=== PATIENT | male | born 1945 | race Caucasian/White ===

== ENCOUNTER → 2016-12-07 | Outpatient (CLI) | payer MEDICARE ==
[2016-12-07 14:15] LABS: Blood Urea Nitrogen 24 mg/dL (9-20); Non-African American GFR(MDRD) >60 (>60 ml/min/1.73 sqM)
--- NOTE | 2016-12-07 16:03 | CT ---
EXAMINATION TYPE: CT urogram wo/w con DATE OF EXAM: 12/07/2016 COMPARISON: NONE HISTORY: Gross hematuria for one month CT DLP: 3693 mGycm, Automated Exposure Control for Dose Reduction was Utilized. CONTRAST: CT scan of the abdomen and pelvis is performed without oral and without and with IV Contrast, patient injected with 100 ml mL of Omnipaque 300. Urogram protocol with Three-D reconstructed images created on independent workstation and reviewed. FINDINGS: KUB: Noncontrast images show no right-sided renal calculi. There are suspected 3-4 small adjacent kianna culi left kidney lower pole level measuring up to 7 mm on long axis on axial image 52. There are susp ected to calculi centrally in the pelvis measuring up to 9 mm on long axis on coronal image 109. Post contrast images show symmetric cortical medullary uptake and excretion from both kidneys without evid ence of hydronephrosis bilaterally. There is simple appearing 2.4 x 1.8 cm cyst centrally right kidne y on axial image 49. No worrisome additional solid or cystic renal lesions are seen. Visualized porti on of both ureters show no suspicious calculi or hydroureter. Bladder is poorly distended and thus rodriguez boptimally evaluated even on 10 minute delay images. No obvious intraluminal mass is present. Mild wa ll thickening is felt likely product of slightly enlarged prostate gland. LUNG BASES: Some dependent and linear scarring and/or atelectasis is present bilaterally. LIVER/GB: There is 2.6 cm simple appearing cyst centrally in liver on axial image 24. Cholecystectomy clips are noted. PANCREAS: No significant abnormality is seen. SPLEEN: No significant abnormality is seen. ADRENALS: Surgical clips near left adrenal gland are suspected. BOWEL: Appendix is within normal limits from cecum in the right lower quadrant. There are some divert icula in the sigmoid and left colon. There is no CT evidence for acute diverticulitis. PROSTATE/SEMINAL VESICLES: Central zone calcifications are seen in prostate gland which is mildly enl arged bulging on bladder base, clinical correlation for BPH is advised. LYMPH NODES: No greater than 1cm abdominal or pelvic lymph nodes are appreciated. OSSEOUS STRUCTURES: There is postsurgical change in the lower lumbar spine with bilateral laminectomy defects and spinous process resection. There is posterior fusion hardware from L3 through S1 levels. There is spinal stimulator device in the posterior spinal canal at the mid to lower thoracic spine. OTHER: There is mild calcified atherosclerotic change of aorta extending into branch vessels. IMPRESSION: Left-sided lower pole calyceal and collecting system calculi as detailed above. No delaye d excretion or hydronephrosis is present.
== END | disposition home or self-care (01) ==
LOC: RADCTMAIN 13:31
PROVIDERS: ATTEND Urology
DX: N20.0 Calculus of kidney (principal)
CPT/HCPCS: 82565; 84520; 74178; 36415; 74400; Q9967

== ENCOUNTER → 2016-12-24 | Outpatient (CLI) | payer MEDICARE ==
[2016-12-24 12:04] LABS: Appearance,Urine Cloudy (Clear); Bilirubin,Urine Negative (Negative); Glucose,Urine (UA) Negative (Negative); Ketones,Urine Trace (Negative); Leukocyte Esterase,Urine Trace (Negative); Mucus,Urine Rare /hpf; Nitrite,Urine Negative (Negative); PH, Urine 5.5 (5.0-8.0); Particle Count 2929; Protein,Urine 1+ (Negative); RBC,Urine >182 /hpf (0-5); Specific Gravity,Urine 1.023 (1.001-1.035); UA Billing (MACRO vs. MICRO) MICRO; Urobilinogen,Urine <2.0 mg/dL (<2.0); WBC,Urine 2 /hpf (0-5)
[2016-12-24 12:13] LABS: Anisocytosis Slight; Basophils % (A) 0 %; CH 25.4; CHCM 30.1; Eosinophils # (A) 0.2 k/uL (0-0.7); Eosinophils % (A) 3 %; HCT 48.2 % (39.0-53.0); HDW 2.89; HGB 14.2 gm/dL (13.0-17.5); Hypochromasia Marked; Luc # (Auto) 0.17; Luc % (Auto) 3; Lymphocytes # (A) 1.3 k/uL (1.0-4.8); Lymphocytes % (A) 23 %; MCH 24.9 pg (25.0-35.0); MCHC 29.4 g/dL (31.0-37.0); MCV 84.8 fL (80.0-100.0); Mean Platelet Volume 8.2; Monocytes # (A) 0.6 k/uL (0-1.0); Monocytes % (A) 11 %; Neutrophils # (A) 3.4 k/uL (1.3-7.7); Neutrophils % (A) 61 %; RBC 5.69 m/uL (4.30-5.90); RDW 18.6 % (11.5-15.5); WBC 5.6 k/uL (3.8-10.6); WBC (Perox) 5.37
[2016-12-24 12:53] LABS: Anion Gap 9 mmol/L; Blood Urea Nitrogen 20 mg/dL (9-20); Carbon Dioxide 22 mmol/L (22-30); Chloride 110 mmol/L (98-107); Non-African American GFR(MDRD) >60 (>60 ml/min/1.73 sqM); Potassium 4.5 mmol/L (3.5-5.1); Sodium 141 mmol/L (137-145)
== END | disposition home or self-care (01) ==
LOC: LABWHC1 11:21
PROVIDERS: ATTEND Urology
DX: N20.0 Calculus of kidney (principal)
CPT/HCPCS: 36415; 80051; 81001; 82565; 84520; 85025

== ENCOUNTER → 2016-12-27 | Day surgery (SDC) | payer MEDICARE ==
[2016-12-24 10:37] VITALS: BMI 33.3
[~2016-12-27] MED LIST: DEXAMETHASONE SOD PHOSPHATE 10 MG/ML 1 ML VIAL IV ONE; KETAMINE 10 MG/ML 20 ML VIAL ONE; LACTATED RINGERS 1,000 ML IV SCH; LIDOCAINE 1% 20 ML VIAL (10MG/ML) FOR IV START INTRADERMA PRN; MIDAZOLAM 2 MG/2 ML VIAL ONE; PROPOFOL 10 MG/ML 20 ML VIAL IV ONE; Pre Op ABX Message 1 EACH MISC MISCELLANE ONE; fentaNYL (PF) 50 MCG/ML 2 ML AMP ONE
--- NOTE | 2016-12-27 10:22 | XR ---
EXAMINATION TYPE: XR KUB DATE OF EXAM: 12/27/2016 10:10 AM CLINICAL HISTORY: Left-sided dominant pain and left-sided nephrolithiasis. TECHNIQUE: Single supine KUB image of the abdomen is obtained. COMPARISON: CT urogram dated 12/07/2016. FINDINGS: The previously seen approximately 9 mm radiopaque calculus on the prior CT this measured tr ansversely on today's examination but appears similar measuring 1.1 cm. Additionally within the lower pole of the left kidney there is redemonstration of an approximately 9 mm calculus. Surgical clips a re appreciated in the left periaortic region and gallbladder fossa. Nerve stimulator and postoperativ e changes of the lumbar spine with spinous process resection and laminectomy defects are again apprec iated. Moderate degenerative change of the bilateral femoral acetabular joints are again seen. Scattered gas is seen in non-distended small bowel loops. Gas and fecal material is seen in non-diste nded colon. IMPRESSION: Left-sided renal calculi appearing similar location to the prior CT of 12/07/2016 radiogra phically. The larger calculus is again thought to reside within the proximal collecting system/renal pelvis.
[2016-12-27 11:46] VITALS: TEMP 97.9
[2016-12-27 12:35] LABS: INR 1.5 (<1.2); Prothrombin Time 14.4 sec (9.0-12.0)
--- NOTE | 2016-12-27 13:10 | P.OP ---
Date of Procedure: 12/27/16 Preoperative Diagnosis: Left Renal Calculi Postoperative Diagnosis: Same Procedure(s) Performed: Left Extracorporal Shockwave Lithotripsy (ESWL) Anesthesia: MAC Surgeon: Catarino Daniels Estimated Blood Loss (ml): 0 IV fluids (ml): 400 Pathology: none sent Condition: stable Disposition: PACU Indications for Procedure: The patient is a 71-year-old male with recent gross hematuria. A computed tomography scan shows calculi within the left renal pelvis and left lower pole. The preoperative KUB x-ray shows them to measure 11 and 9 mm, respectively. He has elected to undergo ESWL and comes for this reason. Operative Findings: The left renal pelvic calculus fragmented. Description of Procedure: The patient was taken to the operating room and placed on the Dornier Compact Delta II lithotripter in the supine position. The calculi were seen on biplanar fluoroscopy. Once the patient was properly positioned and sedated, lithotripsy was performed. The renal pelvic calculus was treated. The energy level was gradually increased per protocol, to an energy level of 5. After 200 shocks were administered, a 2 minute pause was instituted per protocol. A total of 2500 shocks were given at a rate of 80 shocks per minute. Fluoroscopy was utilized at a minimum to ensure proper positioning and determine the treatment status. The calculus changed in appearance, consistent with fragmentation. The patient tolerated the procedure well was taken to the recovery room in stable condition. Instructions were given to strain the urine , and the patient will follow-up with Dr. Carrion in one week.
[2016-12-27 14:01] VITALS: RESP 20
[2016-12-27 14:43] VITALS: BP 138/83; PULSE 68
== END | disposition home or self-care (01) ==
LOC: ORWHC2ENDO 09:52
PROVIDERS: ATTEND Urology
DX: N20.0 Calculus of kidney (principal); I10 Essential (primary) hypertension; E78.5 Hyperlipidemia, unspecified; I48.91 Unspecified atrial fibrillation; Z79.01 Long term (current) use of anticoagulants; E03.9 Hypothyroidism, unspecified; G47.33 Obstructive sleep apnea (adult) (pediatric); G70.00 Myasthenia gravis without (acute) exacerbation; N52.9 Male erectile dysfunction, unspecified; Z87.442 Personal history of urinary calculi; M19.90 Unspecified osteoarthritis, unspecified site; Z79.890 Hormone replacement therapy; Z79.899 Other long term (current) drug therapy; Z87.891 Personal history of nicotine dependence
CPT/HCPCS: 85610; 74000; 50590; J2250; J1100; J3010; J2704

== ENCOUNTER → 2017-01-03 | Outpatient (CLI) | payer MEDICARE ==
[2017-01-03 09:40] LABS: Anisocytosis Slight; Basophils % (A) 1 %; CH 24.9; Eosinophils # (A) 0.2 k/uL (0-0.7); Eosinophils % (A) 3 %; HCT 48.3 % (39.0-53.0); HDW 2.77; HGB 14.1 gm/dL (13.0-17.5); Hypochromasia Marked; Luc # (Auto) 0.16; Luc % (Auto) 3; Lymphocytes # (A) 0.9 k/uL (1.0-4.8); Lymphocytes % (A) 18 %; MCH 25.1 pg (25.0-35.0); MCHC 29.2 g/dL (31.0-37.0); MCV 86.1 fL (80.0-100.0); Mean Platelet Volume 7.2; Monocytes # (A) 0.5 k/uL (0-1.0); Monocytes % (A) 10 %; Neutrophils # (A) 3.4 k/uL (1.3-7.7); Neutrophils % (A) 65 %; RBC 5.61 m/uL (4.30-5.90); WBC 5.2 k/uL (3.8-10.6); WBC (Perox) 4.96
[2017-01-03 09:42] LABS: ALT 34 U/L (21-72); AST 24 U/L (17-59); Alkaline Phosphatase 69 U/L (38-126); Anion Gap 8 mmol/L; Blood Urea Nitrogen 18 mg/dL (9-20); Calcium 9.3 mg/dL (8.4-10.2); Carbon Dioxide 24 mmol/L (22-30); Chloride 109 mmol/L (98-107); Cholesterol 146 mg/dL (<200); Glucose 97 mg/dL (74-99); HDL Cholesterol 42 mg/dL (40-60); Non-African American GFR(MDRD) >60 (>60 ml/min/1.73 sqM); Potassium 4.2 mmol/L (3.5-5.1); Sodium 141 mmol/L (137-145); Total Bilirubin 0.6 mg/dL (0.2-1.3); Total Protein 6.7 g/dL (6.3-8.2)
== END | disposition home or self-care (01) ==
LOC: LABWHC1 08:52
PROVIDERS: ATTEND Internal Medicine Interventional Cardiology
DX: E78.2 Mixed hyperlipidemia (principal); E06.3 Autoimmune thyroiditis; D64.9 Anemia, unspecified; E55.9 Vitamin D deficiency, unspecified; R61 Generalized hyperhidrosis; R73.09 Other abnormal glucose
CPT/HCPCS: 36415; 80053; 80061; 82306; 84402; 84403; 84439; 84443; 85025

== ENCOUNTER → 2018-10-10 | Outpatient (CLI) | payer MEDICARE ==
--- NOTE | 2018-10-10 10:32 | CT ---
EXAMINATION TYPE: CT brain wo con DATE OF EXAM: 10/10/2018 COMPARISON: None HISTORY: Abnormal gait CT DLP: 1087.2 mGycm Automated exposure control for dose reduction was used. Helical imaging through the brain FINDINGS: There is cortical atrophy. Periventricular white matter shows patchy low attenuation. No hemorrhage o r hydrocephalus. Cerebral vascular calcifications are present. The calvarium is intact. Paranasal sin uses and mastoid air cells are well aerated. Orbits are symmetric. IMPRESSION: AGE-RELATED CHANGES OF ATROPHY AND PROBABLE CHRONIC SMALL VESSEL ISCHEMIA.
--- NOTE | 2018-10-10 10:39 | CT ---
EXAMINATION TYPE: CT thoracic spine wo con DATE OF EXAM: 10/10/2018 COMPARISON: Prior dated 08/08/2012 HISTORY: Abnormal gait CT DLP: 1978.1 mGycm Automated exposure control for dose reduction was used. Helical imaging through the thoracic spine. C oronal and sagittal reconstructions. FINDINGS: There is multilevel spondylosis present. Thoracic vertebral bodies show preserved height and alignmen t. Multilevel loss of disc height, vacuum phenomenon present at the intervertebral level of T6-7, T7- 8, T9-T10. Thoracic cord stimulator lead is present at the T7-8 level within the posterior thoracic canal. Entry point is at the posterior aspect of the T10-11 level. No evident spinal stenosis, disc herniation, o r foraminal encroachment. Some mild emphysematous changes present within the lungs. Calcified left thyroid nodule is noted inci dentally. Cystic focus present within the liver is incompletely visualized and measures likely 3 cm. Surgical clips are present within the retroperitoneal location, possible postop change the left adren al gland. IMPRESSION: POSTPROCEDURAL CHANGES. THORACIC SPONDYLOSIS, DEGENERATIVE DISC CHANGE. Additional findings above.
== END | disposition home or self-care (01) ==
LOC: RADCTMAIN 07:45
PROVIDERS: ATTEND Orthopaedic Surgery Orthopaedic Surgery of the Spine
DX: M51.34 Other intervertebral disc degeneration, thoracic region (principal); M47.814 Spondylosis without myelopathy or radiculopathy, thoracic region; M47.812 Spondylosis without myelopathy or radiculopathy, cervical region; G31.1 Senile degeneration of brain, not elsewhere classified; R26.89 Other abnormalities of gait and mobility; M25.78 Osteophyte, vertebrae; E66.9 Obesity, unspecified; Z98.890 Other specified postprocedural states
CPT/HCPCS: 70450; 72128

== ENCOUNTER 2018-11-08 10:42 | Day surgery (SDC) | payer MEDICARE ==
[2018-11-02 09:48] VITALS: BMI 32.7
[~2018-11-08 10:42] MED LIST changes: -KETAMINE 10 MG/ML 20 ML VIAL ONE; +MIDAZOLAM 2 MG/2 ML VIAL IV PRN; -MIDAZOLAM 2 MG/2 ML VIAL ONE; +ONDANSETRON 4 MG/2 ML VIAL IVP ONE; -PROPOFOL 10 MG/ML 20 ML VIAL IV ONE; +fentaNYL (PF) 50 MCG/ML 2 ML AMP IV PRN; -fentaNYL (PF) 50 MCG/ML 2 ML AMP ONE
[2018-11-08] MEDS ORDERED: LACTATED RINGERS 1,000 ML IV ONE ×2 (11:13→13:20)
[2018-11-08] MEDS ORDERED: fentaNYL (PF) 50 MCG/ML 2 ML AMP ONE (12:26)
[2018-11-08] MEDS ORDERED: SUCCINYLCHOLINE CHLORIDE 100 MG/5 ML SYR IV ONE (12:26)
[2018-11-08] MEDS ORDERED: MIDAZOLAM 2 MG/2 ML VIAL ONE (12:26)
[2018-11-08] MEDS ORDERED: PROPOFOL 10 MG/ML 20 ML VIAL IV ONE (12:26)
[2018-11-08] MEDS ORDERED: LIDOCAINE 1% INJ 10MG/ML (20 ML MDV) ONE (12:26)
[2018-11-08] MEDS ORDERED: BUPIVACAIN-EPI 0.25%-1:200,000 30 ML VIAL SQ ONE (13:02)
[2018-11-08 13:55] VITALS: RESP 16; TEMP 97.4
[2018-11-08] MEDS: HYDROmorphone 0.5 MG/0.5 ML SYRINGE IVP PRN ×2 (14:25→14:34)
[2018-11-08] MEDS ORDERED: HYDROcodone/APAP 7.5-325MG 1 EACH TAB PO ONE (15:31)
--- NOTE | 2018-11-08 15:34 | OP ---
OPERATIVE REPORT DATE OF PROCEDURE: 11/08/2018 SURGEON: Ervin Garcia MD FIGHTING [employer] MAINTAINER: SADAF Santiago PREOPERATIVE DIAGNOSES: 1. Right shoulder full-thickness rotator cuff tear. 2. Right shoulder superior labral tear. 3. Right shoulder subacromial impingement. POSTOPERATIVE DIAGNOSES: 1. Right shoulder full-thickness tear of the anterior supraspinatus 1 cm x 1 cm tear. 2. Right shoulder type 2 degenerative superior labral tear. 3. Right shoulder type 3 anterolateral acromial spur. PROCEDURE PERFORMED: 1. Right shoulder arthroscopic rotator cuff repair, 1 cm x 1 cm tear of the supraspinatus. 2. Right shoulder arthroscopic acromioplasty. 3. Right shoulder arthroscopic biceps tenotomy. 4. Right shoulder arthroscopic anterior, superior and posterior labral debridement. ANESTHESIA: General endotracheal. ESTIMATED BLOOD LOSS: Minimal. TOURNIQUET: None. DRAINS: None. COMPLICATIONS: None apparent. DISPOSITION: Postanesthesia care unit. Examination under anesthesia of the right shoulder, elevation 160 degrees, external rotation at the side 45 degrees, external rotation 90 degrees with abduction was to 90 degrees, internal rotation 90 degrees, abduction was 70 degrees. Sulcus less than 1 cm, anterior translation glenoid face, posterior translation glenoid face. ARTHROSCOPIC FINDINGS RIGHT SHOULDER: 1. Superior labrum, type 2 superior labral tear tearing both anterior and posterior to the biceps anchor. The biceps anchor was not intact. 2. Anterior inferior, labrum fraying of the anterior-inferior labrum but normal glenoid labral attachment. 3. Posterior labrum, tearing of the posterior labrum from the 10 o'clock position up to the 12 o'clock position on the glenoid face. 4. Humeral head cartilage was normal. 5. Rotator cuff full-thickness tear of the anterior supraspinatus measuring 1 cm x 1 cm with minimal retraction. 6. Glenoid face cartilage was normal. 7. Subacromial space, significant fraying of the undersurface of the coracoacromial ligament with a type 2-3 anterolateral acromial spur. INDICATIONS: Lonnie is a very pleasant 72-year-old male with right shoulder pain. He sustained injury to the shoulder. He has noted weakness as well as significant pain in the shoulder. He has been through fairly significant course of nonoperative treatment up to this point. Physical examination and MRI reveal tearing of superior labrum as well as a full-thickness rotator cuff tear. At this point, he feels that he has failed nonoperative treatment and would like to proceed with operative intervention. Long discussion was held with the patient with regard to treatment options. The risks of the procedure were all discussed with him in detail. These risks included, but were not limited to risk of infection, nerve damage, bleeding, pain, and a small risk of deep vein thrombosis which could lead to fatal pulmonary embolism. Further risks include lack of healing of the rotator cuff and possibility for biceps contour change with a biceps tenotomy. The patient understands the operation as well as the fact that there is no guarantee of improvement of his symptoms. An appropriate informed consent was obtained. Patient identified in preoperative holding area. Surgical sites marked by both the patient and myself. He was given 2 g of Ancef IV for prophylactic purposes. Then transported to the operative suite, where he was placed supine on the operative table. The patient was then intubated endotracheally and received general anesthesia throughout the operative procedure. Examination under anesthesia was then performed and the findings noted above. The patient was then placed into the beach chair position, well-padded in preparation for surgery. Great care was taken to ensure the cervical spine was in neutral alignment, well-padded and maintained that way throughout the operative procedure. Great care was also taken to ensure that his legs were appropriately padded as well. The patient's right upper extremity is then prepped and draped in usual sterile fashion. Standard surgical pause undertaken to ensure that appropriate preoperative antibiotics were given and that we were operating the correct site. All staff in room in agreement and we proceeded. The acromion as well as the AC joint, coracoid marked with the surgical pen. The skin of the anticipated portal sites were also marked with the surgical pen. The skin of the anticipated portal sites were then injected with 0.25% Marcaine with epinephrine. I then proceeded to make a posterior portal. A 30 degree arthroscope was introduced in the glenohumeral joint through this portal. The arthroscopic pump pressure was set to 40 mmHg and maintained at that level throughout the entire case. Next,. utilizing an 18-gauge spinal needle. topical localized placement, the anterior superior portal was made. This was made just underneath the biceps tendon high in the rotator interval. A small 5.75 mm cannula was then placed and the outflow was then done through this cannula. Diagnostic arthroscopy of shoulder was then performed. The findings noted above. Great care was taken to probe superior labral complex as well as the biceps anchor. The biceps anchor was not firmly attached. He has significant tearing of the superior labrum. This extended both anterior and posterior to the biceps anchor. The intra- articular portion of long head of the biceps tendon did have partial tearing as well. At this point, I proceeded with a biceps tenotomy. The biceps was tenotomized at its attachment on the supraglenoid tubercle. This was done utilizing the ArthroCare wand. I then proceeded to debride the torn loose tissue superior labrum. This was debrided anteriorly, superiorly and posteriorly back to stable tissue. I then inspect the rotator cuff from intra-articular. He did have a full-thickness tear of the anterior aspect of the supraspinatus. This tear was debrided very gently from intra-articular utilizing synovial shaver. At this point time, no further work was deemed necessary from intra-articular. The arthroscope was removed from the glenohumeral joint and utilizing the same posterior skin incision was placed in the subacromial space. Next, utilizing an 18-gauge spinal needle, topical localized placement, a lateral portal was made under direct visualization. A subacromial bursectomy was then performed utilizing synovial shaver as well as the ArthroCare wand. There was significant fraying of the undersurface of the coracoacromial ligament. This was then taken down utilizing the ArthroCare wand. This exposed underlying type 2-3 anterolateral acromial spur. I then proceeded with an acromioplasty. Utilizing synovial shaver in a saima-type fashion, the acromioplasty was completed. When the acromioplasty was complete, the arthroscope was placed in the lateral portal and the shaver placed posteriorly to ensure there was adequate and coplanar with posterior aspect of the acromion. I then proceeded to repair the rotator cuff tear. He did have a full-thickness tear of the anterior leading edge of the supraspinatus. This measured approximately 1 cm x 1 cm. I then made a fourth portal off the anterolateral angle of the acromion. Again, this was done after first localizing the placement with an 18-gauge spinal needle. The footprint of the greater tuberosity was then debrided of all devitalized tissue utilizing synovial shaver as well as the ArthroCare wand. I then performed a light decortication of the greater tuberosity utilizing synovial shaver in a saima type fashion. This was provided a nice bleeding surface with repair. I then placed small microfracture holes along the articular margin to again enhance the healing of the repair. I then utilized scCoursePeerion suture passer and placed Arthrex fiber tape suture in inverted horizontal mattress fashion. The sutures were then shuttled out through the anterolateral portal. I then proceeded with placement of the anchor. The awl was placed in the most anterolateral aspect of the footprint. This was just posterior to the bicipital groove. The sutures were shuttled through the anchor, tensioned appropriately and then the anchor was placed with excellent purchase in bone. This brought the rotator cuff tear down very nicely to the most lateral aspect of the footprint. The FiberTape sutures were cut flush with the anchor. The anchor was an Arthrex 4.75 mm bio SwiveLock anchor. The repair was then probed. The rotator cuff had been repaired down very nicely to the most lateral aspect of the footprint. At this point and time, no further work was deemed necessary. The shoulder was thoroughly irrigated and then drained with an outflow cannula. The arthroscopic equipment was removed from the shoulder. The arthroscopic portals were then closed with 3-0 nylon interrupted suture. Sterile compressive dressings were then applied. The patient's right upper extremity was placed into a standard sling. All sponge and needle counts were deemed correct prior to closure. The patient tolerated the procedure without apparent complication. He was then transferred to the recovery room in stable condition. MMODL / IJN: [id number] /
[2018-11-08 16:10] VITALS: BP 149/88; PULSE 71
== END 2018-11-08 16:19 | disposition home or self-care (01) ==
LOC: OR 10:42
PROVIDERS: ATTEND Orthopaedic Surgery Sports Medicine
DX: M75.101 Unspecified rotator cuff tear or rupture of right shoulder, not specified as traumatic (principal); S43.431A Superior glenoid labrum lesion of right shoulder, initial encounter; M75.41 Impingement syndrome of right shoulder; X58.XXXA Exposure to other specified factors, initial encounter; E03.9 Hypothyroidism, unspecified; G70.00 Myasthenia gravis without (acute) exacerbation; E78.5 Hyperlipidemia, unspecified; I48.91 Unspecified atrial fibrillation; I11.9 Hypertensive heart disease without heart failure; Z98.1 Arthrodesis status; Z96.652 Presence of left artificial knee joint; Z82.49 Family history of ischemic heart disease and other diseases of the circulatory system; Z87.891 Personal history of nicotine dependence; Z79.01 Long term (current) use of anticoagulants; Z79.890 Hormone replacement therapy; Z79.899 Other long term (current) drug therapy
CPT/HCPCS: 29826; 29827; C1713 ×2; J2250; J1100; J0690; J2405; J2001; J3010; J0330; J2704; J1170

== ENCOUNTER → 2019-08-10 | Outpatient (CLI) | payer MEDICARE ==
[2019-08-10 13:49] LABS: Appearance,Urine Clear (Clear); Bilirubin,Urine Negative (Negative); Blood,Urine Negative (Negative); Color,Urine Yellow; Glucose,Urine (UA) Negative (Negative); Ketones,Urine Trace (Negative); Leukocyte Esterase,Urine Negative (Negative); Nitrite,Urine Negative (Negative); PH, Urine 5.5 (5.0-8.0); Protein,Urine Trace (Negative); Specific Gravity,Urine 1.028 (1.001-1.035); Urobilinogen,Urine <2.0 mg/dL (<2.0)
[2019-08-10 14:02] LABS: Basophils % (A) 1 %; Eosinophils # (A) 0.2 k/uL (0-0.7); Eosinophils % (A) 3 %; HGB 15.5 gm/dL (13.0-17.5); Hypochromasia Moderate; Lymphocytes # (A) 1.3 k/uL (1.0-4.8); Lymphocytes % (A) 25 %; MCH 28.1 pg (25.0-35.0); MCHC 30.9 g/dL (31.0-37.0); MCV 90.7 fL (80.0-100.0); Mean Platelet Volume 8.6; Monocytes # (A) 0.4 k/uL (0-1.0); Monocytes % (A) 9 %; Neutrophils % (A) 59 %; Platelet Count 151 k/uL (150-450); RBC 5.52 m/uL (4.30-5.90); RDW 14.9 % (11.5-15.5)
[2019-08-10 14:08] LABS: INR 2.4 (<1.2); Partial Thromboplastin Time 31.5 sec (22.0-30.0); Prothrombin Time 23.8 sec (9.0-12.0)
[2019-08-10 14:15] LABS: ALT 18 U/L (4-49); AST 31 U/L (17-59); African American GFR (CKD) >90 (>60 ml/min/1.73 sqM); Albumin 4.2 g/dL (3.5-5.0); Alkaline Phosphatase 86 U/L (38-126); Anion Gap 3 mmol/L; Blood Urea Nitrogen 25 mg/dL (9-20); Calcium 9.3 mg/dL (8.4-10.2); Carbon Dioxide 26 mmol/L (22-30); Chloride 110 mmol/L (98-107); Creatine Kinase 166 U/L (55-170); Glucose 101 mg/dL (74-99); Non-African American GFR(CKD) 85 (>60 ml/min/1.73 sqM); Potassium 4.4 mmol/L (3.5-5.1); Sodium 139 mmol/L (137-145); Total Bilirubin 1.3 mg/dL (0.2-1.3); Total Protein 7.1 g/dL (6.3-8.2)
== END | disposition home or self-care (01) ==
LOC: LABPAT 12:44
PROVIDERS: ATTEND Orthopaedic Surgery Sports Medicine
DX: Z01.818 Encounter for other preprocedural examination (principal); Z01.812 Encounter for preprocedural laboratory examination; U07.1 COVID-19
CPT/HCPCS: 83519; 80053; 82550; 85025; 85610; 85730; 81003; 87070; U0003

== ENCOUNTER → 2019-08-10 | Outpatient (CLI) | payer MEDICARE | END | disposition home or self-care (01) | LOC: LABWHC1 12:49 | PROVIDERS: ATTEND Psychiatry & Neurology Neurology | DX: Z53.9 Procedure and treatment not carried out, unspecified reason (principal) ==

== ENCOUNTER 2019-08-15 13:08 | Day surgery (SDC) | payer MEDICARE ==
[2019-08-13 15:36] VITALS: BMI 32.7
[~2019-08-15 13:08] MED LIST changes: +ACETAMINOPHEN TAB 500 MG TAB PO ONE; +GABAPENTIN 300 MG CAP PO ONE; +LIDOCAINE 1% (10MG/ML) FOR IV START INTRADERMA PRN; -LIDOCAINE 1% 20 ML VIAL (10MG/ML) FOR IV START INTRADERMA PRN; +MELOXICAM 7.5 MG TAB PO ONE; -Pre Op ABX Message 1 EACH MISC MISCELLANE ONE; +ROPIVACAINE 246.25 MG, EPINEPHrine 0.5 MG, KETOROLAC 30 MG, cloNIDine HCL/PF 80 MCG, WA... MISCELLANE ONE; +TRANEXAMIC ACID 1,000 MG in SODIUM CHLORIDE 0.9% 100 ML IVPB ONE; -fentaNYL (PF) 50 MCG/ML 2 ML AMP IV PRN
[2019-08-15 14:10] LABS: INR 1.1 (<1.2); Partial Thromboplastin Time 24.5 sec (22.0-30.0); Prothrombin Time 11.3 sec (9.0-12.0)
[2019-08-15] MEDS ORDERED: ROPIVACAINE 0.2%-NS ON-Q PUMP 1,090 MG, EMPTY PAIN BALL 1 EACH MISCELLANE PRN (14:33)
--- NOTE | 2019-08-15 14:33 | P.ANPRN ---
Procedure Note - Anesthesia - Nerve Block Performed Right Adductor Canal Date of Procedure: 08/15/19 Procedure Start Time: 14:10 Procedure Stop Time: 14:25 Location of Patient: PreOp Indication: Acute Post-Operative Pain, Requested by Surgeon (Dr Garcia) Sedation Type: Sedate with meaningful contact maintained Preparation: Sterile Prep, Sterile Dressing Position: Supine Catheter: Indwelling Needle Types: Pajunk Needle Gauge: 21 Ultrasound used to visualize needle placement: Yes Ultrasound used to observe medication spread: Yes Injectate: 0.5% Ropivacaine (see comment for volume) (20cc) Blood Aspirated: No Pain Paresthesia on Injection Noted: No Resistance on Injection: Normal Image Stored and Saved: Yes Events: Uneventful and Well Tolerated
[2019-08-15] MEDS ORDERED: HYDROcodone/APAP 5-325MG 1 EACH TAB PO PRN (14:54)
[2019-08-15] MEDS ORDERED: MAGNESIUM HYDROXIDE 2,400 MG/10 ML CUP PO PRN (14:54)
[2019-08-15] MEDS ORDERED: traMADol 50 MG TAB PO PRN (14:54)
[2019-08-15] MEDS ORDERED: HYDROmorphone 0.5 MG/0.5 ML SYRINGE IVP PRN ×3 (14:54)
[2019-08-15] MEDS ORDERED: NALOXONE 0.4 MG/ML 1 ML VIAL IV PRN (14:54)
[2019-08-15] MEDS ORDERED: ONDANSETRON 4 MG/2 ML VIAL IVP PRN (14:54)
[2019-08-15] MEDS ORDERED: ACETAMINOPHEN TAB 325 MG TAB PO PRN (14:54)
[2019-08-15] MEDS ORDERED: NA PHOS,M-B/NA PHOS,DI-BA 133 ML ENEMA RECTAL PRN (14:54)
[2019-08-15] MEDS ORDERED: BISACODYL 10 MG SUPP RECTAL PRN (14:54)
[2019-08-15] MEDS ORDERED: DIAZEPAM 5 MG TAB PO PRN (14:54)
[2019-08-15] MEDS ORDERED: TEMAZEPAM 15 MG CAP PO PRN (14:54)
[2019-08-15] MEDS ORDERED: ALFENTANIL 500 MCG/ML 2 ML AMP IV ONE (15:07)
[2019-08-15] MEDS ORDERED: NEOSTIGMINE 1 MG/ML 10 ML VIAL ONE (15:07)
[2019-08-15] MEDS ORDERED: GLYCOPYRROLATE 0.2 MG/ML 2 ML VIAL ONE (15:07)
[2019-08-15] MEDS ORDERED: MIDAZOLAM 2 MG/2 ML VIAL ONE (15:07)
[2019-08-15] MEDS ORDERED: TRANEXAMIC ACID 1,000 MG/10 ML VIAL ONE (15:07)
[2019-08-15] MEDS ORDERED: LIDOCAINE 1% INJ 10MG/ML (20 ML MDV) ONE (15:07)
[2019-08-15] MEDS ORDERED: fentaNYL (PF) 50 MCG/ML 2 ML AMP ONE (15:07)
[2019-08-15] MEDS ORDERED: SUCCINYLCHOLINE CHLORIDE 100 MG/5 ML SYR IV ONE (15:07)
[2019-08-15] MEDS ORDERED: ePHEDrine SULFATE/0.9% NACL/PF 50 MG/5 ML SYRINGE IV ONE (15:07)
[2019-08-15] MEDS ORDERED: PROPOFOL 10 MG/ML 20 ML VIAL IV ONE (15:07)
[2019-08-15] MEDS ORDERED: ROCURONIUM BROMIDE 10 MG/ML 5 ML VIAL IV ONE (15:07)
[2019-08-15] MEDS ORDERED: SODIUM CHLORIDE 0.9% 100 ML BAG ONE (15:07)
[2019-08-15] MEDS ORDERED: ceFAZolin 3,000 MG in SODIUM CHLORIDE 0.9% IRRIGATIO 3,000 ML IRRIGATION ONE (15:15)
[2019-08-15] MEDS ORDERED: LACTATED RINGERS 1,000 ML IV ONE (16:46)
[2019-08-15] MEDS: HYDROmorphone 0.5 MG/0.5 ML SYRINGE IVP PRN ×4 (17:34→18:00)
--- NOTE | 2019-08-15 17:46 | XR ---
EXAMINATION TYPE: XR knee limited RT DATE OF EXAM: 08/15/2019 CLINICAL HISTORY: Right knee pain and arthritis status post total knee replacement. TECHNIQUE: Portable AP and crosstable lateral views of the right knee are obtained immediately posto peratively. COMPARISON: None FINDINGS: Metallic hardware from total right knee arthroplasty is seen and appears satisfactory in a lignment and position. There is evidence of recent surgery with diffuse subcutaneous gas and mild to moderate subcutaneous edema noted. IMPRESSION: METALLIC HARDWARE FROM TOTAL RIGHT KNEE ARTHROPLASTY IS SATISFACTORY IN ALIGNMENT.
--- NOTE | 2019-08-15 17:46 | OP ---
OPERATIVE REPORT DATE OF PROCEDURE: 08/15/2019 SURGEON: Ervin Garcia MD HOUSING DIRECTOR: Michael Cortes PA-C PREOPERATIVE DIAGNOSIS: Right knee osteoarthrosis. POSTOPERATIVE DIAGNOSIS: Right knee osteoarthrosis. OPERATION: Right total knee arthroplasty. ANESTHESIA: General endotracheal. ESTIMATED BLOOD LOSS: 100 mL. TOURNIQUET: Tourniquet time was 53 minutes at 250 mmHg. COMPLICATIONS: None apparent. DRAINS: None. DISPOSITION: Post-Anesthesia Care Unit. INDICATIONS: Lonnie is a very pleasant 73-year-old male with a longstanding history of right knee pain. History and physical examination are consistent with advanced right knee osteoarthrosis. He has been through significant nonoperative management up to this point. Further treatment options were discussed, and he decided to go forward with right total knee arthroplasty. The risks of the procedure were discussed with him in detail. These risks include but are not limited to risk of infection, nerve damage, bleeding, pain and risk of deep vein thrombosis which could lead to fatal pulmonary embolism. There is also a risk of loosening of the implant which could require revision operation. The patient understands these risks. All of his questions were answered to his satisfaction. Appropriate informed consent was obtained. DESCRIPTION OF THE PROCEDURE: The patient was identified in the preoperative holding area. Surgical site was marked by both the patient and myself. He was given 2 grams of Ancef IV for prophylactic purposes. He was then transferred to the operative suite. He was placed supine on the operating room table. A general anesthetic was then administered and dosed per the anesthesia department without apparent complication. Examination under anesthesia was then performed. He was 5 degrees shy of full extension. He had 100 degrees of flexion, and the medial collateral ligament, lateral collateral ligament and posterior cruciate ligaments were stable. Tourniquet was then placed high on the right upper thigh, well padded in preparation for surgery. The patient's right lower extremity was then prepped and draped in the usual sterile fashion. A standard surgical pause was then undertaken to ensure that we were operating on the correct site and that appropriate preoperative antibiotics had been given. All staff in the room were in agreement and we proceeded. The outlines of the patella were marked with a surgical pen. A planned 12 cm vertical incision centered over the patella was marked with a surgical pen. The leg was then exsanguinated with an Esmarch dressing. The knee was then flexed and the tourniquet was inflated to 250 mmHg. The total tourniquet time for the procedure was 53 minutes. Incision was then made with a 10-blade scalpel. Dissection was carried down sharply to the overlying fascia. Great care was taken to minimize the skin flaps. The knee was then exposed using a standard medial parapatellar approach. A small cuff of quadriceps tendon was then left for suturing. He was in a bit of varus preoperatively. A standard medial release was then made. The superficial medial collateral ligament was dissected off of the bone and around to the posterior aspect of the proximal tibia. The medial meniscus was then excised as well. The lateral meniscus was also released anteriorly. The leg was then externally rotated. The patella was everted. The knee was flexed. The retractors were then placed to protect the collateral ligaments. I then proceeded to remove the infrapatellar fat pad. This was excised sharply tangentially with the fibers of the patellar tendon. I then proceeded to remove the peripheral osteophytes. This was done with a rongeur. I then proceeded with the distal femoral resection. He did have a small flexion contracture. A planned 11 mm resection was then done. The femoral canal was then entered in the midline of the femur approximately 10 mm anterior to the origin of the posterior cruciate ligament. The noah was then advanced down to the center of the femur and placed intramedullary. Based on the preoperative radiographs, the angle between the anatomic and mechanical axis of the femur was approximately 4-5 degrees. The valgus angle of the distal femoral cutting guide was then set at 4 degrees for the right knee. The distal femoral cutting guide was then advanced over the intramedullary noah. This was seated firmly against the femur. I then, as mentioned, planned to take 11 mm off the distal femur. The cutting block was then secured onto the femur with pins. The jig was removed and the distal femoral cut was made through the slot of the block. The pins were then removed and the distal femoral cutting block was removed. The accuracy of the distal femoral cuts was checked with 2 flat bars. I then proceeded with femoral sizing. The posterior referencing sizing guide was held firmly against the resected distal surface of the femur. The posterior condyles were resting on the posterior plane of the guide. The sizing stylus was then placed onto the anterior femur. The size was measured as a size 11. I then assessed for femoral rotation. The plan was for 3 degrees of external rotation. Three degrees of external rotation was placed onto the jig. These holes were then marked. I then confirmed the rotation by 3 separate methods. This was done using the epicondylar axis as well as Whitesides line and posterior referencing. It was deemed that the external rotation was proper. I then went forward with placing the femoral cutting block. This was placed over the previously placed pin holes. The Ajit wing was then placed onto the anterior slots to ensure that we would not notch the anterior femur with the anterior femoral cut. I then proceeded with the anterior femoral cut. This was flush with the anterior cortex of the femur. The posterior cuts were then made followed by the anterior chamfer cut, and then the posterior chamfer cut. The cutting block was then removed. Throughout the resection, the collateral ligaments were protected with retractors. I then placed a trial size 11 femur. It fit very nicely medial to lateral and fit flush with the distal end of the femur. The drill holes were then made. I then proceeded with the tibial cut. I planned for a cruciate-retaining knee. The guide was placed and set for varus, valgus and for slope. The height was set for an approximate 2 mm resection from the medial tibial plateau, which was the lower side. I was happy with the alignment and the amount of resection. The cutting block was then pinned to the proximal tibia. The alignment noah was removed and the proximal tibia was resected with a reciprocating saw. Again this was done with retractors protecting the collateral ligaments as well as the posterior cruciate ligament. I then proceeded to evaluate the flexion and extension gaps. A 10 mm block was then placed. The flexion and extension gaps were equal. I then proceeded with resection of the posterior osteophytes. He had very minimal posterior osteophytes. This was done using a curved osteotome. This resected the posterior osteophytes, and posterior capsule stripping was done off the posterior aspect of the femur at this time. The osteophytes were then removed. I then proceeded with resection of the patella. The thickness of the patella was measured using the caliper. The thickness was 25 mm. The thickness of the anticipated patellar dome was taken into account. Resection was then performed and confirmed to be equal in 4 quadrants using a caliper. Approximately 14 mm of bone remained after the resection. A 38 x 9 standard patellar trial was then placed. The holes were drilled and the trial was then placed. I then proceeded with sizing the tibial plate. A size H tibial plate fit very nicely. I then placed the trial femur and the tibial tray and the patellar button. A 10 mm trial tibial insert was also placed. The components fit very nicely. He had full extension and flexion. The extension and flexion gaps were equal and stable to both varus and valgus stress. The patella tracked appropriately. Tibial tray rotation was then marked with a Bovie. This was externally rotated properly. I then proceeded with tibial preparation. I first drilled the femoral holes and removed the femoral component. The tibial tray was then set for proper external rotation as well as mediolateral placement onto the tibia. It was then pinned into place. I then proceeded with punching the keel. I then decided to proceed with cementing of all of our components. The knee was thoroughly irrigated with sterile saline solution via pulse lavage. The lateral geniculate artery was identified and cauterized. All blood was removed from the bone of the tibia, femur and patella with pulse lavage. I then proceeded with cementing. Two packs of antibiotic bone cement were prepared on the back table by the surgical garment assembly supervisor. I then proceeded with cementing the tibia first. The cement was impacted into the keel as well as deeply seated into the bone. A second coat of cement was then placed. The tibia was then impacted into place. Excess cement was removed with Rama's and jokers. I then proceeded with cementing of the femoral component. The femoral component was also cemented using standard technique. Excess cement was removed. A 10 mm trial insert was then placed into the knee. It was brought into full extension with a constant axial load placed until the cement had hardened. The patellar component was then cemented. This was held firmly with a compressive device until the cement had dried. When the cement had dried, the knee was taken out of extension. All excess cement was removed from around the prosthesis. I then trialed the knee with a 10 mm insert. The flexion and extension gaps were appropriate. The knee was stable. It came into full extension. I decided to go forward with a 10 mm cross-linked cruciate-retaining tibial insert. Polyethylene was then placed onto the tray and locked into place. The knee was then reduced. The knee was again further irrigated with sterile saline solution with antibiotic added. The tourniquet was then deflated. Total tourniquet time for the procedure was 53 minutes at 250 mmHg. The final components were a Bridger Persona size 11 cruciate-retaining femoral component, a size H tibial tray, a 10 mm medial-congruent cruciate-retaining polyethylene insert, and a 38 x 9 mm patella. I then proceeded with closure. Again the knee was thoroughly irrigated. The quadriceps tendon and the medial retinaculum were reapproximated with #2 Ethibond suture. The extensor mechanism was then closed with a running #2 Quill suture. Subcutaneous tissues were closed with 2-0 Vicryl interrupted suture. The skin was closed with a running 3-0 Quill suture. Dermabond was applied to the incision. Sterile compressive dressings were then applied. All sponge and needle counts were deemed correct prior to closure. The patient tolerated the procedure without apparent complication. He was transferred to the recovery room in stable condition. MMODL / IJN: [id number] /
[2019-08-15] MEDS ORDERED: KETOROLAC 30 MG/ML 1 ML VIAL IVP ONE (17:53)
[2019-08-15] MEDS ORDERED: WARFARIN 7.5 MG TAB PO ONE (18:00)
[2019-08-15] MEDS ORDERED: ENALAPRILAT 1.25 MG/ML 1 ML VIAL IVP ONE (18:05)
[2019-08-15] MEDS ORDERED: LABETALOL SYRINGE 5 MG/ML IVP ONE (18:35)
[2019-08-15 20:28] VITALS: PULSE 68
[2019-08-15] MEDS ORDERED: SENNOSIDES-DOCUSATE SODIUM 1 EACH TAB PO SCH (21:00)
[2019-08-15] MEDS ORDERED: EZETIMIBE 10 MG TAB PO SCH (21:00)
[2019-08-15] MEDS: PYRIDOSTIGMINE 60 MG TAB PO SCH (22:32)
[2019-08-15] MEDS: MYCOPHENOLATE MOFETIL 500 MG TAB PO SCH (22:32)
[2019-08-15] MEDS: HYDROcodone/APAP 10-325MG 1 EACH TAB PO PRN (22:33)
[2019-08-15] MEDS: LACTATED RINGERS 1,000 ML IV SCH (22:38)
[2019-08-16] MEDS: LACTATED RINGERS 1,000 ML IV SCH (05:47)
[2019-08-16] MEDS ORDERED: LEVOTHYROXINE 75 MCG TAB PO SCH (06:30)
[2019-08-16] MEDS: HYDROcodone/APAP 10-325MG 1 EACH TAB PO PRN ×2 (08:04→13:04)
[2019-08-16] MEDS: PYRIDOSTIGMINE 60 MG TAB PO SCH (08:05)
[2019-08-16] MEDS: MYCOPHENOLATE MOFETIL 500 MG TAB PO SCH (08:05)
[2019-08-16 08:08] VITALS: BP 139/77; RESP 18; TEMP 97.6
[2019-08-16 08:37] LABS: Basophils % (A) 0 %; Eosinophils % (A) 0 %; HCT 45.2 % (39.0-53.0); HGB 14.2 gm/dL (13.0-17.5); Hypochromasia Slight; Lymphocytes # (A) 0.8 k/uL (1.0-4.8); Lymphocytes % (A) 7 %; MCH 28.3 pg (25.0-35.0); MCHC 31.3 g/dL (31.0-37.0); MCV 90.3 fL (80.0-100.0); Mean Platelet Volume 8.3; Monocytes % (A) 9 %; Neutrophils # (A) 9.6 k/uL (1.3-7.7); Neutrophils % (A) 83 %; Platelet Count 134 k/uL (150-450); RDW 14.7 % (11.5-15.5); WBC 11.6 k/uL (3.8-10.6)
[2019-08-16 08:45] LABS: INR 1.1 (<1.2); Prothrombin Time 11.5 sec (9.0-12.0)
[2019-08-16] MEDS ORDERED: PROPRANOLOL LA 80 MG CAP.SA.24H PO SCH (09:00)
--- NOTE | 2019-08-16 11:12 | P.CONS ---
History of Present Illness - Reason for Consult Consult date: 08/16/19 Medical management atrial fibrillation, hypertension, hypothyroidism Requesting physician: Ervin Garcia - Chief Complaint Right knee pain,OA, failed outpatient treatment - History of Present Illness This is a 73-year-old gentleman with history of atrial fibrillation, hyperl ipidemia, hypertension, osteoarthritis, bilateral knee arthroscopies, prostate disorder, sleep apnea ,hypothyroidism, former nicotine dependence, and multiple other medical issues, status post right total knee arthroplasty secondary to right knee osteoarthrosis with worsening pain, failed outpatient treatment. Tolerated procedure well. Vital signs stable, afebrile with minimally elevated WBC, reactive. Good diet intake with no nausea vomiting or diarrhea. Passing flatus. Has not yet been up with physical therapy. Denies lightheadedness dizziness or focal deficits at rest. Denies chest pain, palpitations or shortness of breath. Patient normally on Coumadin regarding atrial fibrillation ; currently on pharmacy to dose as per orthopedic surgery. Review of Systems Constitutional: Denied any fatigue denied any fever. Cardio vascular: denied any chest pain, palpitations Gastrointestinal denied any nausea vomiting Pulmonary: Denied any shortness of breath cough Neurologic denied any new focal deficits All inpatient medications were reviewed and appropriate changes in these medications as dictated in the interval history and assessment and plan. Past Medical History Past Medical History: Atrial Fibrillation, Hyperlipidemia, Hypertension, Osteoarthritis (OA), Prostate Disorder, Sleep Apnea/CPAP/BIPAP, Thyroid Disorder Additional Past Medical History / Comment(s): MYASTHENIA GRAVIS, hx kidney stone, varicose veins, hx cellulitis History of Any Multi-Drug Resistant Organisms: None Reported Past Surgical History: Back Surgery, Cholecystectomy, Heart Catheterization, Hernia Repair, Joint Replacement, Orthopedic Surgery Additional Past Surgical History / Comment(s): LAMINECTOMY, ADRENAL GLAND REMOVED, bilateral arthroscopies knees, left knee replaced, spinal fusion, rt shoulder arthroscopy, spinal stimultor/device later removed(lead wires remain), inguinal and umbilical hernias Past Anesthesia/Blood Transfusion Reactions: Previous Problems w/ Anesthesia Additional Past Anesthesia/Blood Transfusion Reaction / Comm: PATIENT HAS HISTORY OF MYASTHENIA GRAVIS, took long time coming out and "breathing" diff in recovery Past Psychological History: No Psychological Hx Reported Smoking Status: Former smoker Past Alcohol Use History: Occasional Additional Past Alcohol Use History / Comment(s): STARTED SMOKING AT AGE 18 QUIT SMOKING AT AGE 38. 2 ALCOHOLIC DRINKS 5-6 x week Past Drug Use History: None Reported - Past Family History Mother Family Medical History: Cancer Additional Family Medical History / Comment(s): BREAST CANCER Medications and Allergies Home Medications Medication Instructions Recorded Confirmed Type Ezetimibe [Zetia] 10 mg PO MOWEFR 11/13/15 08/13/19 History Levothyroxine Sodium [Levoxyl] 150 mcg PO DAILY 11/13/15 08/13/19 History Mycophenolate Mofetil [Cellcept] 1,000 mg PO BID 11/13/15 08/13/19 History Propranolol LA [Inderal LA] 80 mg PO DAILY 11/13/15 08/13/19 History Pyridostigmine [place] [Mestinon] 60 mg PO QID 11/13/15 08/13/19 History Warfarin [Coumadin] 5 mg PO MOTUTHFRSA 11/13/15 08/13/19 History Warfarin [Coumadin] 7.5 mg PO SUWE 11/13/15 08/13/19 History Testosterone Cypionate 50 mg IM Q14D 12/24/16 08/13/19 History [Depo-Testosterone] Cholecalciferol (Vitamin D3) 2,000 unit PO DAILY 11/02/18 08/13/19 History [Vitamin D3] Ibuprofen [Advil] 400 mg PO Q8HR PRN 08/13/19 08/13/19 History Allergies Allergy/AdvReac Type Severity Reaction Status Date / Time No Known Allergies Allergy Verified 08/13/19 15:16 Physical Exam Vitals: Vital Signs Temp Pulse Resp BP BP Pulse Ox 08/16/19 07:49 18 08/16/19 07:00 97.6 F 18 139/77 94 L 08/16/19 00:07 14 143/87 96 08/15/19 19:58 97.8 F 68 16 154/91 93 L 08/15/19 19:03 76 16 150/97 98 08/15/19 18:46 81 16 172/100 97 08/15/19 18:39 159/80 08/15/19 18:30 70 16 170/101 97 08/15/19 18:10 160/92 08/15/19 18:01 71 16 156/106 95 08/15/19 17:46 71 16 163/108 99 08/15/19 17:36 81 16 163/98 97 08/15/19 17:17 97.4 F L 95 14 172/101 98 08/15/19 14:29 70 14 128/70 94 L 08/15/19 13:35 98.6 F 62 16 158/98 97 Intake and Output 08/15/19 08/16/19 08/16/19 22:59 06:59 14:59 Intake Total 1401 Output Total 100 600 Balance 1301 -600 Intake: IV 1401 Output: Urine 600 Estimated Blood Loss 100 Other: Voiding Method Urinal Urinal # Voids 1 Weight 118.7 kg PHYSICAL EXAM: VITAL SIGNS: As above GENERAL: Sitting up in bed, no acute distress HEENT: Conjunctivae normal. eyes normal. NECK: No JVD. No thyroid enlargement. No LNs CARDIOVASCULAR: S1, S2 regular.. No murmur RESPIRATION: Breath sounds diminished in the bases. No rhonchi or crackles. No bronchial breathing. ABDOMEN: Soft, nontender . No guarding. no masses palpable. No ascites, No hepatosplenomegaly.Bowel sounds heard. LEGS: Right knee dressings clean dry and intact, trace edema. No clubbing, no cyanosis. Positive DP, PT pulses. Sensation grossly intact. PSYCHIATRY: Alert and oriented X3, mood and affect normal. NERVOUS SYSTEM: Cranial N 2-12 grossly normal. Moves all 4 limbs. Diffuse weakness No focal deficits. Skin: no rash Lymphatic system. No LN neck axilla. Results CBC & Chem 7: 08/16/19 07:40 Labs: Abnormal Lab Results - Last 24 Hours (Table) 08/16/19 Range/Units 07:40 WBC 11.6 H (3.8-10.6) k/uL Plt Count 134 L (150-450) k/uL Neutrophils # 9.6 H (1.3-7.7) k/uL Lymphocytes # 0.8 L (1.0-4.8) k/uL Assessment and Plan Assessment: Status post right total knee arthroplasty secondary to right knee osteoarthrosis, failed outpatient treatment Mild leukocytosis, reactive Chronic atrial fibrillation Hyperlipidemia Hypertension Osteoarthritis Prostate disorder Sleep apnea, wears CPAP Hypothyroidism History of myasthenia gravis Former nicotine dependence Plan: Continue on current medication regime ,monitoring and symptomatic t reatment. Pain management as per orthopedic surgery. Anticoagulation currently as per pharmacy dosing. Aggressive pulmonary toileting with incentive spirometer reinforced. Home meds have been reviewed and resumed accordingly. Further recommendations to follow. Thank you Dr. Garcia for the consult. The impression and plan of care has been dictated as directed. : I performed a history and examination of this patient, discussed the same with the dictator. I agree with the dictator's note ,documented as a scribe. Any additional findings or plans will be noted.
[2019-08-16] MEDS ORDERED: PANTOPRAZOLE 40 MG/10 ML VIAL IVP SCH (11:15)
--- NOTE | 2019-08-16 11:51 | P.DS ---
Providers Expected date of discharge: 08/16/19 Attending physician: Ervin Garcia Consults: 08/15/19 14:54 Consult Physician Routine Consulting Provider: Louis Trejo Consult Reason/Comments: post op medical management Do you want consulting provider notified?: Yes Primary care physician: Louis Trejo - Discharge Diagnosis(es) (1) S/P total knee arthroplasty Patient was admitted to the OR on 08/15/2019 to undergo a right total knee arthroplasty. He had failed conservative measures as an outpatient and desired to proceed with elective surgery after given informed consent. He underwent the above procedure which he tolerated well without complication. Postoperative hospital course has remained without complication. On day of discharge he is afebrile, vital signs stable, labs within acceptable ranges, tolerating by mouth meds and diet, voiding without difficulty, positive flatus, denies abdominal pain or calf pain, pain is controlled on oral pain medication and has no new complaints. Wound is benign, neurovascular status is intact, calf is soft and nontender, abdomen soft and nontender. Review of systems is negative for numbness, tingling, fever, chills, chest pain, shortness of breath, nausea, vomiting, dizziness, headaches, slurred speech or other Current Visit: No Status: Acute Priority: Medium Procedures: Right TKA Patient Condition at Discharge: Good Plan - Discharge Summary Discharge Rx Participant: Yes New Discharge Prescriptions: No Action Warfarin [Coumadin] 7.5 mg PO SUWE Warfarin [Coumadin] 5 mg PO MOTUTHFRSA Propranolol LA [Inderal LA] 80 mg PO DAILY Mycophenolate Mofetil [Cellcept] 1,000 mg PO BID Levothyroxine Sodium [Levoxyl] 150 mcg PO DAILY Ezetimibe [Zetia] 10 mg PO MOWEFR Pyridostigmine [place] [Mestinon] 60 mg PO QID Testosterone Cypionate [Depo-Testosterone] 50 mg IM Q14D Cholecalciferol (Vitamin D3) [Vitamin D3] 2,000 unit PO DAILY Ibuprofen [Advil] 400 mg PO Q8HR PRN PRN Reason: Pain Discharge Medication List Ezetimibe [Zetia] 10 mg PO MOWEFR 11/13/15 [History] Levothyroxine Sodium [Levoxyl] 150 mcg PO DAILY 11/13/15 [History] Mycophenolate Mofetil [Cellcept] 1,000 mg PO BID 11/13/15 [History] Propranolol LA [Inderal LA] 80 mg PO DAILY 11/13/15 [History] Pyridostigmine [place] [Mestinon] 60 mg PO QID 11/13/15 [History] Warfarin [Coumadin] 5 mg PO MOTUTHFRSA 11/13/15 [History] Warfarin [Coumadin] 7.5 mg PO SUWE 11/13/15 [History] Testosterone Cypionate [Depo-Testosterone] 50 mg IM Q14D 12/24/16 [History] Cholecalciferol (Vitamin D3) [Vitamin D3] 2,000 unit PO DAILY 11/02/18 [History] Ibuprofen [Advil] 400 mg PO Q8HR PRN 08/13/19 [History] Follow up Appointment(s)/Referral(s): [facility], [NON-STAFF] - Activity/Diet/Wound Care/Special Instructions: Patricias D/C Rx.
[2019-08-16] MEDS ORDERED: MULTIVITAMINS, THERA 1 EACH TAB PO SCH (12:00)
[2019-08-16] MEDS ORDERED: WARFARIN 7.5 MG TAB PO ONE (18:00)
[2019-08-17] MEDS ORDERED: PANTOPRAZOLE 40 MG TABLET PO SCH (07:30)
== END 2019-08-16 14:21 | disposition home health service (06) ==
LOC: OR 13:08 → 4SSUR 17:17 → OR 08-16 14:21
PROVIDERS: ATTEND Orthopaedic Surgery Sports Medicine
DX: M17.11 Unilateral primary osteoarthritis, right knee (principal); D72.829 Elevated white blood cell count, unspecified; I11.9 Hypertensive heart disease without heart failure; I42.8 Other cardiomyopathies; I48.20 Chronic atrial fibrillation, unspecified; I83.90 Asymptomatic varicose veins of unspecified lower extremity; E78.2 Mixed hyperlipidemia; G47.30 Sleep apnea, unspecified; E03.9 Hypothyroidism, unspecified; G70.00 Myasthenia gravis without (acute) exacerbation; H91.90 Unspecified hearing loss, unspecified ear; N42.9 Disorder of prostate, unspecified; Z98.1 Arthrodesis status; Z96.652 Presence of left artificial knee joint; Z98.890 Other specified postprocedural states; Z87.891 Personal history of nicotine dependence; Z79.01 Long term (current) use of anticoagulants; Z79.890 Hormone replacement therapy; Z87.442 Personal history of urinary calculi; Z80.3 Family history of malignant neoplasm of breast; Z82.49 Family history of ischemic heart disease and other diseases of the circulatory system
CPT/HCPCS: 97110; 97161; 64448; 76942; 85025; 85610 ×2; 85730; 88300; 73560; 27447; C1776; C1713; J2250; J0171; J1100; J2710; J0690 ×3; J2405; J2001; J3010; J1885; J7517 ×2; J2795 ×2; J0330; J2704; J0735; C9113; J1170

== ENCOUNTER → 2019-09-06 | Outpatient (CLI) | payer MEDICARE ==
[2019-09-06 18:38] LABS: Creatine Kinase 89 U/L (35-257)
[2019-09-06 18:51] LABS: Protein, Total 6.2 g/dL (6.2-8.2)
[2019-09-06 21:44] LABS: Hemoglobin A1C 5.3 % (4.0-6.0)
[2019-09-07 13:54] LABS: Albumin 3.69 g/dL (3.80-4.90); Gamma Globulin 0.89 g/dL (0.70-1.50)
== END | disposition home or self-care (01) ==
LOC: LABWHC1 11:51
PROVIDERS: ATTEND Psychiatry & Neurology Neurology
DX: G62.9 Polyneuropathy, unspecified (principal); R73.9 Hyperglycemia, unspecified
CPT/HCPCS: 36415; 82550; 82607; 82747; 83036; 84165; 84439; 84443; 85652; 86038; 86618

== ENCOUNTER → 2021-03-30 | Outpatient (CLI) | payer MEDICARE ==
[2021-03-30 15:43] LABS: INR 2.8 (<1.2); Partial Thromboplastin Time 35.9 sec (22.0-30.0)
[2021-03-30 20:18] LABS: Appearance,Urine Clear (Clear); Color,Urine Yellow (Yellow); Specific Gravity,Urine 1.022 (1.001-1.030)
== END ==
LOC: LABPAT 14:29
PROVIDERS: ATTEND Orthopaedic Surgery
DX: Z01.812 Encounter for preprocedural laboratory examination (principal); M16.9 Osteoarthritis of hip, unspecified
CPT/HCPCS: 36415; 81003; 85610; 85730; 87070

== ENCOUNTER 2021-04-06 08:05 | Day surgery (SDC) | payer MEDICARE ==
[2021-03-31 16:01] VITALS: BMI 32.7
[~2021-04-06 08:05] MED LIST changes: -ACETAMINOPHEN TAB 500 MG TAB PO ONE; +ACETAMINOPHEN TAB 500 MG TAB PO PRN; -DEXAMETHASONE SOD PHOSPHATE 10 MG/ML 1 ML VIAL IV ONE; +DEXAMETHASONE SOD PHOSPHATE 4 MG/ML 1 ML VIAL IV ONE; -GABAPENTIN 300 MG CAP PO ONE; +GABAPENTIN 300 MG CAP PO PRN; -LACTATED RINGERS 1,000 ML IV SCH; -MELOXICAM 7.5 MG TAB PO ONE; +MELOXICAM 7.5 MG TAB PO PRN; -MIDAZOLAM 2 MG/2 ML VIAL IV PRN; -ROPIVACAINE 246.25 MG, EPINEPHrine 0.5 MG, KETOROLAC 30 MG, cloNIDine HCL/PF 80 MCG, WA... MISCELLANE ONE; -TRANEXAMIC ACID 1,000 MG in SODIUM CHLORIDE 0.9% 100 ML IVPB ONE; +TRANEXAMIC ACID 1,000 MG in SODIUM CHLORIDE 0.9% 100 ML IVPB PRN
[2021-04-06] MEDS ORDERED: HYDROmorphone 0.5 MG/0.5 ML SYRINGE IVP PRN ×2 (08:06)
[2021-04-06] MEDS ORDERED: NALOXONE 0.4 MG/ML 1 ML VIAL IV PRN (08:06)
[2021-04-06] MEDS ORDERED: HYDROmorphone 0.2 MG/1 ML SYRINGE IVP PRN (08:06)
[2021-04-06] MEDS ORDERED: MAGNESIUM HYDROXIDE 2,400 MG/10 ML CUP PO PRN (08:06)
[2021-04-06] MEDS ORDERED: ONDANSETRON 4 MG/2 ML VIAL IVP PRN (08:06)
[2021-04-06] MEDS ORDERED: HYDROcodone/APAP 7.5-325MG 1 EACH TAB PO PRN ×2 (08:08)
[2021-04-06] MEDS: LACTATED RINGERS 1,000 ML IV SCH ×2 (08:51→21:40)
[2021-04-06 09:03] LABS: INR 1.2 (<1.2); Prothrombin Time 12.2 sec (9.0-12.0)
[2021-04-06] MEDS ORDERED: SUCCINYLCHOLINE CHLORIDE 100 MG/5 ML SYR IV ONE (09:19)
[2021-04-06] MEDS ORDERED: TRANEXAMIC ACID 1,000 MG/10 ML VIAL ONE (09:19)
[2021-04-06] MEDS ORDERED: SODIUM CHLORIDE 0.9% 100 ML BAG ONE (09:19)
[2021-04-06] MEDS ORDERED: LIDOCAINE 1% INJ 10MG/ML (20 ML MDV) ONE (09:19)
[2021-04-06] MEDS ORDERED: HYDROmorphone (PF) 1 MG/ML ONE (09:19)
[2021-04-06] MEDS ORDERED: MIDAZOLAM 2 MG/2 ML VIAL ONE (09:19)
[2021-04-06] MEDS ORDERED: fentaNYL (PF) 50 MCG/ML 2 ML AMP ONE (09:19)
[2021-04-06] MEDS ORDERED: ePHEDrine 50 MG/ML 1 ML AMP ONE (09:19)
[2021-04-06] MEDS ORDERED: PROPOFOL 10 MG/ML 20 ML VIAL IV ONE (09:19)
[2021-04-06] MEDS ORDERED: ROPIVACAINE 5 MG/ML 30 ML VIAL MISCELLANE ONE ×2 (09:26→10:49)
[2021-04-06] MEDS ORDERED: ceFAZolin 1,000 MG in SODIUM CHLORIDE 0.9% 1,000 ML IRRIGATION ONE (09:29)
[2021-04-06] MEDS ORDERED: LACTATED RINGERS 1,000 ML IV ONE (10:08)
--- NOTE | 2021-04-06 11:03 | P.OP ---
Date of Procedure: 04/06/21 Preoperative Diagnosis: Severe osteoarthritis left hip Postoperative Diagnosis: Severe osteoarthritis left hip Procedure(s) Performed: Left total hip arthroplasty with a direct anterior approach Implants: [employer] Polarstem standard size 9 [employer] R3, 3 hole hemispherical acetabular shell, 56 mm [employer] Reflection 6.5 mm cancellus screw, 25 mm 2 [employer] R3, XLPE 20 acetabular liner [employer]hew Oxinium femoral head 36 m, +4 All components were press-fit. The articulation is Oxinium on polyethylene. Anesthesia: GETA Surgeon: Robbi Cornejo Cleaner Wall #1: Ashlee De Los Santos Estimated Blood Loss (ml): 400 Pathology: other (Femoral head) Condition: stable Disposition: PACU Indications for Procedure: After failure of conservative treatment we discussed the surgical and nonsurgical treatment options at length. Patient wishes to proceed with a total hip arthroplasty with a direct anterior approach. Complications specific to this procedure were discussed at length, including but not limited to infection, leg length discrepancy, dislocation, nerve injury, and fracture. Covid-19 was also discussed at length with the patient, and they are aware of the current policies and procedures. The patient was given the option of delaying surgery, but they elect to proceed knowing these risks. Patient is aware of all these complications and informed consent was obtained Operative Findings: The operative findings are consistent with severe osteoarthritis of the left hip Description of Procedure: Patient was seen and evaluated in the preoperative area and the consent was reviewed. The operative site was marked with a skin marker. The patient was then brought to the operating room and given preoperative antibiotics intr avenously. 1 g of Tranexamic acid was also given intravenously. A general anesthetic was administered by the anesthesia department. The patient was then placed on the [place] table with the bony prominences well-padded. The hip area was then prepped with a ChloraPrep solution and draped in the usual sterile fashion. A universal timeout was then performed, which confirmed the patient's name, andrew gical site, ALLERGIES, and procedure being performed on the consent. Next the incision site was located at 1 cm distal and 2 cm lateral to the anterior superior iliac spine. The skin and subcutaneous tissues were sharply incised. Incision was carefully dissected down to the fascia overlying the tensor fascia ginette muscle. This fascia was then incised in line with the incision. Care was taken to stay laterally in order to avoid injuring the lateral femoral cutaneous nerve. Next, using blunt finger dissection, the tensor fascia ginette muscle was dissected off its investing fascia. The muscle was then carefully retracted laterally with a cobra retractor over the lateral neck of the femur. Next, the circumflex vessels were identified and cauterized using the AquaMantis device. The anterior hip capsule was then exposed. The capsule was then opened and an inverted T fashion. Cobra retractors were then placed intracapsularly. The retractors were maintained intracapsular throughout the procedure. The proximal femur was then visualized. Fluoroscopic x-rays were then taken in order to evaluate the preoperative leg lengths. A small amount of traction was placed on the leg. The femoral neck was then osteotomized at the appropriate level above the lesser trochanter. A small wedge of bone was then removed from the remaining femoral head. Next, using a corkscrew the femoral head was removed from the acetabulum. On gross visual inspection, the femoral head had complete loss of articular cartilage and multiple periarticular osteophytes. The femoral head was then measured. Attention was then turned to the acetabulum. The acetabulum was exposed and any remaining labrum was excised. Sequential reaming of the acetabulum was performed using fluoroscopic guidance until there was a good bed of bleeding cancellus bone. When the appropriate size was reached, a trial was then placed. The position and fit of the trial was checked with fluoroscopy. The trial was then removed. Then, using fluoroscopic guidance, the final implant was impacted at 20 of anteversion and 40 of abduction, and fully seated in the acetabulum. 2 screws were then placed in the acetabulum. Again fluoroscopy was used to check position of the screws. Next, the liner was then impacted, with a 20 elevated liner located in the anterior superior quadrant. Component locking was confirmed. Attention was then directed to the femur. With the aid of the [place] table, the femur was externally rotated to approximately 130, extended, and adducted under the opposite leg. A side hook was then placed under the proximal femur, and the side hook elevator was used to elevate the proximal femur while releasing the capsule. Retractors were then placed. A capsular release was performed, as well as a release of the conjoined tendon, which afforded excellent visualization of the proximal femur. Next, a box osteotome was used to lateralize the proximal femur. A merchandise clerk was then used to locate the femoral canal. Sequential broaching was then performed with appropriate size which afforded excellent fixation in the proximal femur. A trial was then placed with appropriate head and neck, and the hip was gently reduced with the aid of the [place] table. Fluoroscopy was then used to check position of the components, as well as to ensure equal leg lengths. The hip was then gently dislocated and the trials were then removed. Final implants were then impacted and the hip was again reduced. Final fluoroscopic x-rays confirmed that the components were in anatomic position, as well as equal leg lengths. The hip was also taken through range of motion, and found to be stable. The hip was then copiously irrigated with antibiotic solution with pulsatile lavage. The hip was then irrigated with Irrisept solution. The soft tissues were then injected with a ropivacaine solution. A second dose of 1 g of Tranexamic acid was also given intravenously. Any blood collected by Cell Saver was then returned to the patient at this time. The fascia was then closed with 2-0 strata fix suture. The subcutaneous tissue was closed with 3-0 Vicryl. The subcuticular tissue was closed with 3-0 strata fix suture. The skin was then closed with Exofin skin glue. After the glue and dried, and Optifoam silver impregnated dressing was applied. The patient was then transferred to the recovery room in stable condition. The podiatry assistant NEW [place] was required due to the complexity of surgery, and the need for skilled surgical aides teacher for positioning, draping, exposure, retraction, and closure of the wound.
--- NOTE | 2021-04-06 11:07 | FL ---
EXAMINATION TYPE: FL guidance operating room DATE OF EXAM: 04/06/2021 HISTORY: Fluoroscopy time 48 seconds of fluoroscopy provided. IMPRESSION: 1. Fluoroscopy time.
--- NOTE | 2021-04-06 11:08 | XR ---
EXAMINATION TYPE: XR Hip Limited LT DATE OF EXAM: 04/06/2021 COMPARISON: NONE HISTORY: Postop TECHNIQUE: One view submitted. FINDINGS: There is postsurgical change in near anatomic alignment. There is soft tissue edema and emphysema. IMPRESSION: 1. Postoperative change. Appears in near-anatomic alignment.
[2021-04-06] MEDS ORDERED: KETOROLAC 15 MG/ML 1 ML VIAL IVP ONE (11:50)
[2021-04-06] MEDS: HYDROmorphone 0.5 MG/0.5 ML SYRINGE IVP PRN ×2 (11:52→12:54)
[2021-04-06] MEDS ORDERED: SODIUM CHLORIDE 0.9% 1,000 ML IV ONE (12:47)
[2021-04-06] MEDS: SODIUM CHLORIDE 0.9% 1,000 ML IV SCH ×2 (17:18→21:39)
[2021-04-06] MEDS ORDERED: WARFARIN 5 MG TAB PO ONE (18:00)
[2021-04-06] MEDS: PYRIDOSTIGMINE 60 MG TAB PO SCH ×2 (19:41→21:37)
[2021-04-06] MEDS ORDERED: SENNOSIDES-DOCUSATE SODIUM 1 EACH TAB PO SCH (21:00)
[2021-04-07] MEDS ORDERED: LEVOTHYROXINE 75 MCG TAB PO SCH (06:30)
[2021-04-07] MEDS ORDERED: PROPRANOLOL LA 80 MG CAP.SA.24H PO SCH (09:00)
--- NOTE | 2021-04-07 09:01 | P.DS ---
Providers Expected date of discharge: 04/07/21 Attending physician: Robbi Cornejo Consults: 04/06/21 08:06 Consult Physician Routine Consulting Provider: Louis Trejo Consult Reason/Comments: medical management and anticoagulation Do you want consulting provider notified?: Yes Primary care physician: Louis Trejo - Discharge Diagnosis(es) (1) Osteoarthritis of left hip Current Visit: Yes Status: Acute (2) S/P total left hip arthroplasty Current Visit: Yes Status: Acute Hospital Course: This is a 75-year-old male with known history of degenerative arthritis of the left hip. The patient presented for evaluation as an outpatient. After discussion and consideration patient elects to proceed with total hip arthroplasty. The patient is seen preoperatively by Dr. Cornejo and medically cleared for surgery by their primary care physician. Patient is admitted to [facility] on 04/06/2021 for total hip arthroplasty. The procedure is performed without complication or sequelae. The patient is doing well postoperatively. Labs and vital signs are stable on day of discharge. On day of discharge patient's hip incision is healing well. There is minimal erythema. There is no drainage noted at this time. There is minimal soft tissue swelling to the hip and thigh. Patient has full foot and ankle motion without difficulty or pain. Calf is soft and nontender to palpation. Neurovascular status to the left lower extremity is intact. Patient is discharged home in good condition. Please see med rec for accurate list of home medications. Plan - Discharge Summary Discharge Rx Participant: Yes New Discharge Prescriptions: New HYDROcodone/APAP 7.5-325MG [[place] 7.5-325] 1 - 2 tab PO Q6H PRN #32 tab PRN Reason: Pain Sennosides [Senokot] 2 tab PO DAILY PRN #60 tablet PRN Reason: Constipation Ondansetron Odt [Zofran Odt] 1 tab PO Q8HR PRN #10 tab PRN Reason: Nausea No Action Warfarin [Coumadin] 7.5 mg PO SUTUTH Warfarin [Coumadin] 5 mg PO MOWEFRSA Propranolol LA [Inderal LA] 80 mg PO DAILY mycophenolate mofetiL [Cellcept] 500 mg PO BID Levothyroxine Sodium [Levoxyl] 150 mcg PO DAILY Ezetimibe [Zetia] 10 mg PO MOWEFR Pyridostigmine [place] [Mestinon] 60 mg PO QID Testosterone Cypionate [Depo-Testosterone] 50 mg IM Q14D Cholecalciferol (Vitamin D3) [Vitamin D3] 2,000 unit PO DAILY Ibuprofen [Advil] 400 mg PO Q8HR PRN PRN Reason: Pain Discharge Medication List Ezetimibe [Zetia] 10 mg PO MOWEFR 11/13/15 [History] Levothyroxine Sodium [Levoxyl] 150 mcg PO DAILY 11/13/15 [History] Propranolol LA [Inderal LA] 80 mg PO DAILY 11/13/15 [History] Pyridostigmine [place] [Mestinon] 60 mg PO QID 11/13/15 [History] Warfarin [Coumadin] 5 mg PO MOWEFRSA 11/13/15 [History] Warfarin [Coumadin] 7.5 mg PO SUTUTH 11/13/15 [History] mycophenolate mofetiL [Cellcept] 500 mg PO BID 11/13/15 [History] Testosterone Cypionate [Depo-Testosterone] 50 mg IM Q14D 12/24/16 [History] Cholecalciferol (Vitamin D3) [Vitamin D3] 2,000 unit PO DAILY 11/02/18 [History] Ibuprofen [Advil] 400 mg PO Q8HR PRN 08/13/19 [History] HYDROcodone/APAP 7.5-325MG [[place] 7.5-325] 1 - 2 tab PO Q6H PRN #32 tab 04/06/21 [Rx] Ondansetron Odt [Zofran Odt] 1 tab PO Q8HR PRN #10 tab 04/06/21 [Rx] Sennosides [Senokot] 2 tab PO DAILY PRN #60 tablet 04/06/21 [Rx] Follow up Appointment(s)/Referral(s): [facility], [NON-STAFF] - ([facility] will call you to schedule your in home physical therapy visits.) Robbi Cornejo DO [Doctor of Osteopathic Medicine] - 2 Weeks Activity/Diet/Wound Care/Special Instructions: Weightbearing as tolerated with walker. Leave dressing intact. Dressing may be removed by home care nurse or by patient in 7 days. Then change dressing twice daily until follow up. May shower with initial dressing intact and after removal. If dressing become saturated, please remove. Please resume Coumadin. Recommend use of compression stockings daily until follow up to help prevent swelling and blood clots. May remove at night before sleeping. Please follow-up with [facility] in 2 weeks and call with any questions or concerns, . Discharge Disposition: HOME WITH HOME HEALTH SERVICES
[2021-04-07 09:36] LABS: Basophils # (A) 0.02 X 10*3/uL (0.00-0.10); Basophils % (A) 0.2 %; Eosinophils # (A) 0 X 10*3/uL (0.04-0.35); Eosinophils % (A) 0 %; HCT 39.2 % (39.6-50.0); HGB 12.4 g/dL (13.0-17.0); Lymphocytes # (A) 0.96 X 10*3/uL (0.90-5.00); Lymphocytes % (A) 10.6 %; MCH 30.1 pg (27.0-32.0); MCHC 31.6 g/dL (32.0-37.0); MCV 95.1 fL (80.0-97.0); Mean Platelet Volume 11.7 fL (9.5-12.2); Monocytes # (A) 1.17 X 10*3/uL (0.20-1.00); Monocytes % (A) 12.9 %; Neutrophils # (A) 6.91 X 10*3/uL (1.80-7.70); Neutrophils % (A) 76.1 %; Platelet Count 111 X 10*3/uL (140-440); RBC 4.12 X 10*6/uL (4.40-5.60); WBC 9.08 X 10*3/uL (4.50-10.00)
[2021-04-07 09:40] VITALS: BP 92/56; PULSE 74; RESP 16; TEMP 98.6
[2021-04-07 09:46] LABS: INR 1.11 (0.90-1.11); Prothrombin Time 12.1 sec (9.9-11.9)
[2021-04-07] MEDS: PYRIDOSTIGMINE 60 MG TAB PO SCH (09:53)
[2021-04-07] MEDS: SODIUM CHLORIDE 0.9% 1,000 ML IV SCH (10:43)
[2021-04-07] MEDS ORDERED: PANTOPRAZOLE 40 MG/10 ML VIAL IVP SCH (11:15)
--- NOTE | 2021-04-07 12:09 | P.CONS ---
History of Present Illness - Reason for Consult Consult date: 04/07/21 Medical management atrial fibrillation, sleep apnea, hypothyroidism,MG Requesting physician: Robbi Cornejo - Chief Complaint OA status post left hip repair - History of Present Illness This is a pleasant 75-year-old gentleman admitted with chronic atrial fibrillation, cardiac catheterization, hyperlipidemia, osteoarthritis, prostate disorder, sleep apnea, uses CPAP, hypothyroidism, myasthenia gravis, Former nicotine dependence and multiple other medical issues, status post total left hip arthroplasty-direct anterior approach. Tolerated procedure well. Pain controlled. Passing flatus. Denies chest pain, palpitations or shortness of breath. Ambulating with walker, tolerating well, denies lightheadedness dizziness or focal deficits. Denies any nausea vomiting or diarrhea. Denies any chills. Afebrile, normal WBC, maintaining O2 sats in the 90s on room air. Review of Systems Constitutional: Denied any fatigue denied any fever. Cardio vascular: denied any chest pain, palpitations Gastrointestinal denied any nausea vomiting Pulmonary: Denied any shortness of breath cough Neurologic denied any new focal deficits ROS Statement: Those systems with pertinent positive or pertinent negative responses have been documented in the HPI. ROS Other: All systems not noted in ROS Statement are negative. Past Medical History Past Medical History: Atrial Fibrillation, Hyperlipidemia, Osteoarthritis (OA), Prostate Disorder, Sleep Apnea/CPAP/BIPAP, Thyroid Disorder Additional Past Medical History / Comment(s): MYASTHENIA GRAVIS, uses CPAP, hx. kidney stone, had exposure to covid on 03-25-21 from brother, has no sx. & will contact PCP if develops any History of Any Multi-Drug Resistant Organisms: None Reported Past Surgical History: Back Surgery, Cholecystectomy, Heart Catheterization, Hernia Repair, Joint Replacement, Orthopedic Surgery Additional Past Surgical History / Comment(s): LAMINECTOMY & then lumbar fusion, ADRENAL GLAND REMOVED, bilateral arthroscopies knees, mendez. knee replacements, right shoulder arthoscopy. Total Left hip 04/06/21 Past Anesthesia/Blood Transfusion Reactions: Previous Problems w/ Anesthesia Additional Past Anesthesia/Blood Transfusion Reaction / Comm: PATIENT HAS HISTORY OF MYASTHENIA GRAVIS, had hard time waking up once after surg. years ago but not since Past Psychological History: No Psychological Hx Reported Smoking Status: Former smoker Past Alcohol Use History: Occasional Additional Past Alcohol Use History / Comment(s): STARTED SMOKING AT AGE 18 QUIT SMOKING AT AGE 39. 2 ALCOHOLIC DRINKS DAILY Past Drug Use History: None Reported - Past Family History Mother Family Medical History: Cancer Additional Family Medical History / Comment(s): BREAST CANCER Medications and Allergies Home Medications Medication Instructions Recorded Confirmed Type Ezetimibe [Zetia] 10 mg PO MOWEFR 11/13/15 04/06/21 History Levothyroxine Sodium [Levoxyl] 150 mcg PO DAILY 11/13/15 04/06/21 History Propranolol LA [Inderal LA] 80 mg PO DAILY 11/13/15 04/06/21 History Pyridostigmine [place] [Mestinon] 60 mg PO QID 11/13/15 04/06/21 History Warfarin [Coumadin] 5 mg PO MOWEFRSA 11/13/15 04/06/21 History Warfarin [Coumadin] 7.5 mg PO SUTUTH 11/13/15 04/06/21 History mycophenolate mofetiL [Cellcept] 500 mg PO BID 11/13/15 04/06/21 History Testosterone Cypionate 50 mg IM Q14D 12/24/16 04/06/21 History [Depo-Testosterone] Cholecalciferol (Vitamin D3) 2,000 unit PO DAILY 11/02/18 04/06/21 History [Vitamin D3] Ibuprofen [Advil] 400 mg PO Q8HR PRN 08/13/19 04/06/21 History HYDROcodone/APAP 7.5-325MG [[place] 1 - 2 tab PO Q6H PRN #32 tab 04/06/21 Rx 7.5-325] Ondansetron Odt [Zofran Odt] 1 tab PO Q8HR PRN #10 tab 04/06/21 Rx Sennosides [Senokot] 2 tab PO DAILY PRN #60 tablet 04/06/21 Rx Allergies Allergy/AdvReac Type Severity Reaction Status Date / Time No Known Allergies Allergy Verified 04/06/21 08:29 Physical Exam Vitals: Vital Signs Temp Pulse Pulse Resp BP Pulse Ox 04/07/21 09:39 98.6 F 74 16 92/56 04/07/21 06:48 98.3 F 95 18 116/65 95 04/07/21 02:00 98.1 F 73 16 102/69 94 L 04/06/21 20:00 97.6 F 61 17 112/74 94 L 04/06/21 16:26 97.5 F L 61 18 137/95 96 04/06/21 16:00 66 16 131/86 98 04/06/21 15:30 75 16 122/77 95 04/06/21 14:50 72 16 146/72 97 04/06/21 14:15 787 H 16 138/88 97 04/06/21 13:45 67 16 121/88 94 L 04/06/21 13:30 70 16 138/88 96 04/06/21 13:05 64 16 121/74 95 04/06/21 12:45 65 16 133/80 95 04/06/21 12:30 59 L 16 129/79 96 04/06/21 12:15 66 16 134/78 97 04/06/21 12:00 81 16 140/83 98 04/06/21 11:45 65 16 122/80 99 04/06/21 11:30 64 18 131/82 Intake and Output 04/06/21 04/07/21 04/07/21 22:59 06:59 14:59 Intake Total 870 180 Output Total 400 150 Balance -400 720 180 Intake: IV 870 Sodium Chloride 0.9% 1, 770 000 ml @ 70 mls/hr IV . [id number] [facility] Rx#:[id number] ceFAZolin 2 gm In Sodium 100 Chloride 0.9% 50 ml @ 100 mls/hr IVPB ONCE PRN Rx# :[id number] Oral 180 Output: Urine 400 150 Other: # Voids 1 2 1 Weight 119.6 kg PHYSICAL EXAM: VITAL SIGNS: As above GENERAL: Sitting up in bed, no acute distress HEENT: Conjunctivae normal. eyes normal. Oral mucosa moist NECK: No JVD. No thyroid enlargement. No LNs CARDIOVASCULAR: S1, S2 regular. No murmur RESPIRATION:CTA, with breath sounds diminished in the bases. No rhonchi or crackles. ABDOMEN: Soft, nontender . No guarding. no masses palpable. No ascites, No hepatosplenomegaly.Bowel sounds heard. EXTREMITIES: Left lower extremity dressing, clean dry and intact, mild edema/erythema. No calf tenderness, positive DP pulse. PSYCHIATRY: Alert and oriented X3, mood and affect normal. NERVOUS SYSTEM: Cranial N 2-12 grossly normal. Moves all 4 limbs. No focal deficits. Strength and sensation grossly intact.. Skin: Warm and dry, no rash Results CBC & Chem 7: 04/07/21 03:12 Labs: Abnormal Lab Results - Last 24 Hours (Table) 04/07/21 04/07/21 Range/Units 03:12 03:12 RBC 4.12 L (4.40-5.60) X 10*6/uL Hgb 12.4 L (13.0-17.0) g/dL Hct 39.2 L (39.6-50.0) % MCHC 31.6 L (32.0-37.0) g/dL Plt Count 111 L (140-440) X 10*3/uL Monocytes # 1.17 H (0.20-1.00) X 10*3/uL Eosinophils # 0 L (0.04-0.35) X 10*3/uL PT 12.1 H (9.9-11.9) sec Assessment and Plan Assessment: Severe osteoarthritis left hip, status post total left hip arthroplasty-direct anterior approach. Chronic atrial fibrillation, on Coumadin Sleep apnea, uses CPAP at home hypothyroidism myasthenia gravis prostate disorder Former nicotine dependence Plan: Continue current medication regime ,monitoring and symptomatic treatment. PT pending. Pain management as per orthopedic surgery. Patient's home dose of Coumadin has been resumed with PT INR to be rechecked on Tuesday. Discharge planning in progress as per primary for discharge. Follow-up with Dr. Trejo in [address] Cornejo for the consult. The impression and plan of care has been dictated as directed. : I performed a history and examination of this patient, discussed the same with the dictator. I agree with the dictator's note ,documented as a scribe. Any additional findings or plans will be noted.
[2021-04-07] MEDS ORDERED: WARFARIN 7.5 MG TAB PO ONE (18:00)
[2021-04-08] MEDS ORDERED: EZETIMIBE 10 MG TAB PO SCH (09:00)
== END 2021-04-07 11:43 | disposition home health service (06) ==
LOC: OR 08:05 → 4SSUR 16:02 → OR 04-07 11:43
PROVIDERS: ATTEND Orthopaedic Surgery
DX: M16.12 Unilateral primary osteoarthritis, left hip (principal); E03.9 Hypothyroidism, unspecified; I11.9 Hypertensive heart disease without heart failure; I48.20 Chronic atrial fibrillation, unspecified; G70.00 Myasthenia gravis without (acute) exacerbation; E78.5 Hyperlipidemia, unspecified; I42.9 Cardiomyopathy, unspecified; G47.30 Sleep apnea, unspecified; Z20.822 Contact with and (suspected) exposure to COVID-19; M48.00 Spinal stenosis, site unspecified; H91.90 Unspecified hearing loss, unspecified ear; Z98.1 Arthrodesis status; Z96.653 Presence of artificial knee joint, bilateral; Z96.611 Presence of right artificial shoulder joint; Z82.49 Family history of ischemic heart disease and other diseases of the circulatory system; Z87.891 Personal history of nicotine dependence; Z90.49 Acquired absence of other specified parts of digestive tract; Z79.01 Long term (current) use of anticoagulants; Z79.890 Hormone replacement therapy; Z79.891 Long term (current) use of opiate analgesic; Z79.52 Long term (current) use of systemic steroids; Z79.899 Other long term (current) drug therapy
CPT/HCPCS: 86900; 86901; 85610; 86850; 87635; 73501; 27130; J1100; J0690 ×2; J2405; J7517; J2795; J1885; J1170; 85025; 88300

== ENCOUNTER → 2021-07-24 | Outpatient (CLI) | payer MEDICARE ==
--- NOTE | 2021-07-24 09:14 | CT ---
EXAMINATION TYPE: CT lumbar spine wo con DATE OF EXAM: 07/24/2021 9:04 AM COMPARISON: None HISTORY: Spondylosis w/o myelopathy CT DLP: 2021.40 mGycm Automated exposure control for dose reduction was used. Unenhanced CT of the lumbar spine was performed. Bone and soft tissue window settings are submitted as well as coronal and sagittal reconstructions. L1-L2: Moderate degenerative change with disc space narrowing. Posterior disc bulge. Ventral spondylo sis. Facet joint arthropathy. No evidence for herniation or central stenosis. No foraminal encroachme nt. L2-L3: Mild degenerative disc space narrowing. Circumferential disc bulge greatest posteriorly. Facet joint arthropathy and hypertrophy of the ligamentum flavum resulting in [id number] central court nosis. Bilateral foraminal encroachment. L3-L4: Postoperative changes of fusion and laminectomy. Pedicular screws are in place. No evidence fo r recurrent or residual disease. L4-L5: Postoperative changes of fusion and laminectomy. Pedicular screws are in place. No evidence fo r recurrent or residual disease. L5-S1: Postoperative changes of fusion and laminectomy. Pedicular screws are in place. No evidence fo r recurrent or residual disease. No evidence of fracture or malalignment. IMPRESSION: 1. Postoperative changes of lumbar laminectomy and fusion with normal alignment. No evidence for recu rrent disease. 2. Mild to moderate central stenosis at L2-3.
== END | disposition home or self-care (01) ==
LOC: RADCTMAIN 08:40
PROVIDERS: ATTEND Orthopaedic Surgery Orthopaedic Surgery of the Spine
DX: M47.816 Spondylosis without myelopathy or radiculopathy, lumbar region (principal); E66.9 Obesity, unspecified; M25.78 Osteophyte, vertebrae; M43.26 Fusion of spine, lumbar region; M51.36 Other intervertebral disc degeneration, lumbar region; M51.34 Other intervertebral disc degeneration, thoracic region
CPT/HCPCS: 72131

== ENCOUNTER → 2022-07-15 | Outpatient (CLI) | payer MEDICARE | END | disposition home or self-care (01) | LOC: LABWHC1 14:26 | PROVIDERS: ATTEND Internal Medicine Interventional Cardiology | DX: R06.02 Shortness of breath (principal) | CPT/HCPCS: 36415; 83880 ==

== ENCOUNTER → 2022-08-30 | Outpatient (CLI) | payer MEDICARE ==
[2022-08-30 17:33] LABS: Basophils # (A) 0.03 X 10*3/uL (0.00-0.10); Basophils % (A) 0.8 %; Eosinophils # (A) 0.07 X 10*3/uL (0.04-0.35); Eosinophils % (A) 1.8 %; HCT 44.9 % (39.6-50.0); HGB 13.6 d/dL (12.0-15.0); Lymphocytes # (A) 1.16 X 10*3/uL (0.90-5.00); Lymphocytes % (A) 30.4 %; MCH 28.2 pg (27.0-32.0); MCHC 30.3 d/dL (32.0-37.0); Mean Platelet Volume 12.5 FL (9.5-12.2); Monocytes # (A) 0.49 X 10*3/uL (0.20-1.00); Monocytes % (A) 12.8 %; NRBC Per 100 WBC 0 X 10*3/uL (0.00-0.01); Neutrophils # (A) 2.06 X 10*3/uL (1.80-7.70); Neutrophils % (A) 53.9 %; Platelet Count 125 X 10*3/uL (140-440); RBC 4.83 X 10*6/uL (4.40-5.60); RDW 15.1 % (11.5-14.5); WBC 3.82 X 10*3/uL (4.50-10.00)
== END | disposition home or self-care (01) ==
LOC: LABWHC1 09:53
PROVIDERS: ATTEND Nurse Practitioner Adult Health
DX: I48.11 Longstanding persistent atrial fibrillation (principal); R06.02 Shortness of breath
CPT/HCPCS: 36415; 85025

== ENCOUNTER → 2022-09-22 | Outpatient (CLI) | payer MEDICARE ==
[2022-09-22 23:04] LABS: Basophils # (A) 0.05 X 10*3/uL (0.00-0.10); Basophils % (A) 0.9 %; Eosinophils # (A) 0.28 X 10*3/uL (0.04-0.35); Eosinophils % (A) 5.3 %; HCT 45.2 % (39.6-50.0); HGB 13.8 d/dL (12.0-15.0); Lymphocytes # (A) 0.99 X 10*3/uL (0.90-5.00); Lymphocytes % (A) 18.7 %; MCH 27.3 pg (27.0-32.0); MCHC 30.5 d/dL (32.0-37.0); MCV 89.5 FL (80.0-97.0); Mean Platelet Volume 12.1 FL (9.5-12.2); Monocytes # (A) 0.86 X 10*3/uL (0.20-1.00); Monocytes % (A) 16.3 %; NRBC Per 100 WBC 0 X 10*3/uL (0.00-0.01); Neutrophils % (A) 58.6 %; Platelet Count 144 X 10*3/uL (140-440); RBC 5.05 X 10*6/uL (4.40-5.60); RDW 15.7 % (11.5-14.5); WBC 5.29 X 10*3/uL (4.50-10.00)
== END | disposition home or self-care (01) ==
LOC: LABWHC1 13:59
PROVIDERS: ATTEND Family Medicine
DX: D72.819 Decreased white blood cell count, unspecified (principal); D69.6 Thrombocytopenia, unspecified
CPT/HCPCS: 36415; 85025